=== PATIENT | female | born 1960 | race Two or more races ===

== ENCOUNTER 2019-05-03 07:46 | Outpatient (CLI) | payer OTHER ==
[~2019-05-03 07:46] MED LIST: IRON1 TA1; KEPPRA250 MG; MIRALAX510 GM PO; ORTHO-CYCLEN1 TAB; SENOKOT8.6 MG PO; TRAMADOL HCL-AP1 TAB PO
== END 2019-05-03 07:50 | disposition home or self-care (01) ==
LOC: SONOGRAMA 07:46
DX: E04.2 Nontoxic multinodular goiter (principal)

== ENCOUNTER 2022-04-22 18:58 | Emergency (ER) | payer OTHER ==
[~2022-04-22] VITALS: Ht 172.7 cm; Wt 71.7 kg
[2022-04-22] MEDS ORDERED: PANTOPRAZOLE SO40 MG PO (20:01)
[2022-04-22] MEDS ORDERED: CLONAZEPAM2 MG PO (20:01)
[2022-04-22] MEDS ORDERED: PAXIL20 MG PO (20:02)
== END 2022-04-22 22:03 | disposition home or self-care (01) ==
LOC: ER 18:58
DX: R60.0 Localized edema (principal); I10 Essential (primary) hypertension

== ENCOUNTER 2022-04-23 07:37 | Outpatient (CLI) | payer OTHER ==
[~2022-04-23 07:37] MED LIST changes: +CLONAZEPAM2 MG PO; +PANTOPRAZOLE SO40 MG PO; +PAXIL20 MG PO
== END 2022-04-23 07:38 | disposition home or self-care (01) ==
LOC: NUCLEAR 07:37
PROVIDERS: ATTEND General Practice
DX: I82.401 Acute embolism and thrombosis of unspecified deep veins of right lower extremity (principal); G89.11 Acute pain due to trauma

== ENCOUNTER 2022-04-23 09:09 | Inpatient (IN) | payer OTHER ==
[~2022-04-23] VITALS: Ht 172.7 cm; Wt 67.1 kg
--- NOTE | 2022-04-23 09:23 | NUR ---
PACIENTE ALERTA Y ORIENTADA X3. PACIENTE REFIERE VENIR POR DOLOR EN PIERNA DERECHA Y EDEMA.
--- NOTE | 2022-04-23 10:11 | NUR ---
PACIENTE ALERTA Y ORIENTADA POR ZEN. SE ORIENTA DE TRATAMIENTO ARNALDO ORDEN MEDICA. REFIERE ENTENDER. SE KARTIK MUESTRAS, SE CANALIZA Y SE ADMINISTRA BRENNAN CON MEDIDAS ASEPTICAS CORRESPONDIENTES.
[2022-04-28] MEDS ORDERED: FAMOTIDINE20 MG PO (09:19)
[2022-04-28] MEDS ORDERED: KEPPRA500 MG PO (09:19)
[2022-04-28] MEDS ORDERED: XARELTO20 M1 PO (09:19)
[2022-04-28] MEDS ORDERED: CLONAZEPAM0.5 MG PO (09:19)
[2022-04-28] MEDS ORDERED: PAXIL20 MG PO (09:19)
== END 2022-04-28 10:11 | disposition home or self-care (01) | DRG 300 ==
LOC: ER 09:09 → MEDI 21:34
PROVIDERS: ADMIT Internal Medicine; ATTEND Internal Medicine
DX: I82.491 Acute embolism and thrombosis of other specified deep vein of right lower extremity (principal); D68.59 Other primary thrombophilia; I87.2 Venous insufficiency (chronic) (peripheral); D50.8 Other iron deficiency anemias; R97.0 Elevated carcinoembryonic antigen [CEA]; F17.200 Nicotine dependence, unspecified, uncomplicated; Z86.718 Personal history of other venous thrombosis and embolism

== ENCOUNTER 2022-06-01 08:50 | Outpatient (CLI) | payer OTHER ==
[~2022-06-01 08:50] MED LIST changes: +CLONAZEPAM0.5 MG PO; +FAMOTIDINE20 MG PO; +KEPPRA500 MG PO; +XARELTO20 M1 PO
== END 2022-06-01 08:57 | disposition home or self-care (01) ==
LOC: TOM 08:50
PROVIDERS: ATTEND Internal Medicine Hematology & Oncology
DX: D50.0 Iron deficiency anemia secondary to blood loss (chronic) (principal); K50.80 Crohn's disease of both small and large intestine without complications; I82.493 Acute embolism and thrombosis of other specified deep vein of lower extremity, bilateral
CPT/HCPCS: 74177; Q9965

== ENCOUNTER 2022-08-17 09:09 | Outpatient (CLI) | payer OTHER | END 2022-08-17 09:10 | disposition home or self-care (01) | LOC: NUCLEAR 09:09 | PROVIDERS: ATTEND Internal Medicine Hematology & Oncology | DX: I82.421 Acute embolism and thrombosis of right iliac vein (principal); I81 Portal vein thrombosis; Z86.718 Personal history of other venous thrombosis and embolism ==

== ENCOUNTER 2022-08-17 12:36 | Inpatient (IN) | payer OTHER ==
[~2022-08-17] VITALS: Ht 172.7 cm; Wt 72.6 kg
== END 2022-08-19 16:48 | disposition home or self-care (01) | DRG 300 ==
LOC: ER 12:36 → MEDJ 19:10
PROVIDERS: ADMIT Specialist; ATTEND Specialist
PROC: BB24YZZ Computerized Tomography (CT Scan) of Bilateral Lungs using Other Contrast (ICD-10-PCS; principal; 2022-08-17)
PROC: 3E0F7SF Introduction of Other Gas into Respiratory Tract, Via Natural or Artificial Opening (ICD-10-PCS; 2022-08-17)
PROC: B246ZZZ Ultrasonography of Right and Left Heart (ICD-10-PCS; 2022-08-19)
DX: I82.411 Acute embolism and thrombosis of right femoral vein (principal); D68.69 Other thrombophilia; E72.12 Methylenetetrahydrofolate reductase deficiency; J81.1 Chronic pulmonary edema

== ENCOUNTER 2022-11-09 06:44 | Outpatient (CLI) | payer OTHER ==
[2022-11-09 07:57] LABS: HEMATOCRIT 35.3 % (36.0-45.00); HEMOGLOBIN 11.8 g/dL (12.0-15.00); MEAN CELL VOLUME 92.9 fL (80.00-100.00); MEAN CORPUSCULAR HGB CONC 33.4 g/dl (32.0-36.0); PLATELET COUNT 211 K/uL (150-450); RED CELL DISTRIBUTION WIDTH 14.3 % (11.5-14.5)
== END 2022-11-09 08:11 | disposition home or self-care (01) ==
LOC: LAB 06:44
PROVIDERS: ATTEND Internal Medicine Hematology & Oncology
DX: D50.8 Other iron deficiency anemias (principal); I10 Essential (primary) hypertension; K76.89 Other specified diseases of liver; D51.1 Vitamin B12 deficiency anemia due to selective vitamin B12 malabsorption with proteinuria; D51.0 Vitamin B12 deficiency anemia due to intrinsic factor deficiency; D68.59 Other primary thrombophilia; I82.431 Acute embolism and thrombosis of right popliteal vein; E72.11 Homocystinuria; E72.12 Methylenetetrahydrofolate reductase deficiency

== ENCOUNTER 2022-11-09 08:08 | Outpatient (CLI) | payer OTHER | END 2022-11-09 08:17 | disposition home or self-care (01) | LOC: NUCLEAR 08:08 | PROVIDERS: ATTEND Internal Medicine Hematology & Oncology | DX: E72.11 Homocystinuria (principal); E72.12 Methylenetetrahydrofolate reductase deficiency; I82.431 Acute embolism and thrombosis of right popliteal vein ==

== ENCOUNTER 2023-05-03 06:56 | Outpatient (CLI) | payer OTHER ==
[2023-05-03 08:11] LABS: HEMATOCRIT 35.9 % (36.0-45.00); HEMOGLOBIN 12.4 g/dL (12.0-15.00); MEAN CELL VOLUME 90.7 fL (80.00-100.00); MEAN CORPUSCULAR HEMOGLOBIN 31.3 pg (27.00-32.0); MEAN CORPUSCULAR HGB CONC 34.5 g/dl (32.0-36.0); PLATELET COUNT 222 K/uL (150-450); RED BLOOD COUNT 3.96 M/uL (4.00-6.00); RED CELL DISTRIBUTION WIDTH 13.8 % (11.5-14.5)
[2023-05-03 08:36] LABS: PARTIAL THROMBOPLASTIN TIME 24.4 SECONDS (22.0-34.0); PROTHROMBIN TIME 10.5 SECONDS (9.0-11.5)
[2023-05-03 08:56] LABS: ALBUMIN 3.8 gm/dL (3.4-5.0); BILIRUBIN TOTAL 0.5 mg/dL (0.3-1.2); CALCIUM 9.5 mg/dL (8.5-10.1); CREATININE SERUM 0.76 mg/dL (0.55-1.02); GFR 77.11; POTASSIUM 3.79 mEq/L (3.5-5.1); TOTAL PROTEIN 6.8 gm/dL (6.4-8.2)
[2023-05-03 09:50] LABS: FOLIC ACID > 20.00 ng/ml (4.78-20)
[2023-05-04 09:09] LABS: HOMOCYSTEINE 7.4 umol/L (0.0-17.2)
[2023-05-05 15:32] LABS: MANUAL PLATELET COUNT 398
[2023-05-05 15:34] LABS: PLATELET ESTIMATE NORMAL (NORMAL)
== END 2023-05-03 06:57 | disposition home or self-care (01) ==
LOC: LAB 06:56
PROVIDERS: ATTEND Internal Medicine Hematology & Oncology
DX: D50.8 Other iron deficiency anemias (principal); R79.9 Abnormal finding of blood chemistry, unspecified; I10 Essential (primary) hypertension; R74.02 Elevation of levels of lactic acid dehydrogenase [LDH]; K76.89 Other specified diseases of liver; D51.8 Other vitamin B12 deficiency anemias; D68.61 Antiphospholipid syndrome; I82.431 Acute embolism and thrombosis of right popliteal vein

== ENCOUNTER 2023-05-03 08:30 | Outpatient (CLI) | payer OTHER | END 2023-05-03 08:31 | disposition home or self-care (01) | LOC: NUCLEAR 08:30 | PROVIDERS: ATTEND Internal Medicine Hematology & Oncology | DX: I82.431 Acute embolism and thrombosis of right popliteal vein (principal) ==

== ENCOUNTER 2023-10-15 18:59 | Emergency (ER) | payer OTHER ==
[~2023-10-15] VITALS: Ht 172.7 cm; Wt 64.9 kg
[2023-10-15] MEDS ORDERED: PAXIL20 MG PO (19:15)
[2023-10-15] MEDS ORDERED: ELIQUIS5 MG PO (19:16)
[2023-10-15] MEDS ORDERED: HYDROGEN PEROXIDE 473 ML BOTTLE TOP ONE (19:55)
[2023-10-15] MEDS ORDERED: KETOROLAC TROMETHAMINE 60 MG VIAL IM ONE ×2 (20:15→20:21)
== END 2023-10-15 21:32 | disposition home or self-care (01) ==
LOC: ER 19:00
DX: S89.81XA Other specified injuries of right lower leg, initial encounter (principal); X58.XXXA Exposure to other specified factors, initial encounter; Y93.89 Activity, other specified; Y92.89 Other specified places as the place of occurrence of the external cause; Y99.8 Other external cause status; T14.8XXA Other injury of unspecified body region, initial encounter; T24.201A Burn of second degree of unspecified site of right lower limb, except ankle and foot, initial encounter; T31.0 Burns involving less than 10% of body surface; T79.8XXA Other early complications of trauma, initial encounter; Z15.89 Genetic susceptibility to other disease
CPT/HCPCS: 96372; 99282; J1885

== ENCOUNTER 2023-10-17 09:42 | Emergency (ER) | payer OTHER ==
[~2023-10-17] VITALS: Ht 172.7 cm; Wt 63.5 kg
[~2023-10-17 09:42] MED LIST changes: +ELIQUIS5 MG PO
[2023-10-17] MEDS ORDERED: KETOROLAC TROMETHAMINE 60 MG VIAL IM ONE ×2 (12:30→12:37)
[2023-10-17 13:45] LABS: HEMATOCRIT 39.4 % (36.0-45.00); MEAN CELL VOLUME 91.4 fL (80.00-100.00); MEAN CORPUSCULAR HEMOGLOBIN 30.3 pg (27.00-32.0); MEAN CORPUSCULAR HGB CONC 33.1 g/dl (32.0-36.0); PLATELET COUNT 342 K/uL (150-450); RED BLOOD COUNT 4.31 M/uL (4.00-6.00); RED CELL DISTRIBUTION WIDTH 13.1 % (11.5-14.5)
[2023-10-17 14:00] LABS: CALCIUM 9.5 mg/dL (8.5-10.1); CREATININE SERUM 0.68 mg/dL (0.55-1.02); GFR 87.39; POTASSIUM 3.56 mEq/L (3.5-5.1)
[2023-10-17 14:14] LABS: PARTIAL THROMBOPLASTIN TIME 28.5 SECONDS (22.0-34.0)
[2023-10-17 14:29] LABS: D DIMER 6.67 MG/L
== END 2023-10-17 18:24 | disposition home or self-care (01) ==
LOC: ER 09:42
PROVIDERS: General Practice
DX: M79.604 Pain in right leg (principal); T30.0 Burn of unspecified body region, unspecified degree
CPT/HCPCS: 36415; 93971; 96372; 99284; J1885

== ENCOUNTER 2024-05-21 07:55 | Outpatient (CLI) | payer OTHER | END 2024-05-21 07:56 | disposition home or self-care (01) | LOC: NUCLEAR 07:55 | PROVIDERS: ATTEND Internal Medicine Hematology & Oncology | DX: D68.61 Antiphospholipid syndrome (principal); E72 Other disorders of amino-acid metabolism; I87.2 Venous insufficiency (chronic) (peripheral) ==

== ENCOUNTER 2024-10-15 07:00 | Inpatient (IN) | payer OTHER ==
[~2024-10-15] VITALS: Ht 172.7 cm; Wt 69.4 kg
[2024-10-15 08:08] VITALS: BP 104/70
[2024-10-15] MEDS ORDERED: AZULFIDINE500 M1 PO (08:14)
[2024-10-15] MEDS ORDERED: VITAMINA C (08:15)
[2024-10-15] MEDS ORDERED: VITAMIN D310 MCG/1 M (08:15)
[2024-10-15] MEDS ORDERED: [UNRECOGNIZED DRUG - OTHER] (08:15)
[2024-10-15] MEDS ORDERED: [UNRECOGNIZED DRUG - OTHER] (08:16)
[2024-10-15] MEDS ORDERED: CENTRUM SILVER (08:16)
[2024-10-15 08:30] LABS: BASO % 0.4 % (0.1-1.2); EOS # 0.00 (0.04-0.54); EOS % 0.0 % (0.7-7.0); LYMPH # 2.04 (1.18-3.74); LYMPH % 25.6 % (19.3-53.1); MEAN PLATELET VOLUME 9.50 fl (9.4-12.4); MONO # 0.66 (0.24-0.82); MONO % 8.3 % (4.7-12.5); NEUT # 5.20 (1.56-6.13); NEUT % 65.2 % (34.0-71.1); RED CELL DISTRIBUTION WIDTH 12.2 % (11.6-14.4)
[2024-10-15 08:32] LABS: URINE APPEARANCE Clear; URINE BILIRRUBIN Negative (NEGATIVE); URINE BLOOD Negative; URINE COLOR Yellow; URINE GLUCOSE Negative (NEGATIVE); URINE KETONE Trace (NEGATIVE); URINE LEUKOCYTE Negative; URINE NITRATE Negative; URINE PROTEIN Negative (NEGATIVE); URINE UROBILINOGEN 0.2 E.U./dl
[2024-10-15 08:37] LABS: URINE BACTERIA 4.7 uL (0.0-1933); URINE EPITHELIAL CELLS 1.9 uL (0.0-38.8); URINE RBC 5.8 uL (0.0-20.8); URINE WBC 9.8 uL (0.0-23.2)
[2024-10-15 08:42] LABS: URINE CAST 0.29 uL (0.0-1.40)
[2024-10-15 08:55] LABS: ALT/SGPT 22.0 U/L (12-78); AST/SGOT 12.0 U/L (15-37); BILIRUBIN TOTAL 0.38 mg/dL (0.3-1.2); BUN CREA RATIO 19.0 (7.0-25.0); CREATININE SERUM 0.8 mg/dL (0.55-1.02); GFR 72.21; GLOBULINA 3.3 G/DL (2.4-3.5); GLUCOSE FASTING 79.0 mg/dL (65-100); OSMOLALITY SERUM 287.0 MOSM/KG (275-295)
[2024-10-15 09:48] LABS: INR 0.96
[2024-10-23] MEDS ORDERED: TRANEXAMIC ACID 100MG/1ML (1000MG) AMPUL ONE (06:42)
[2024-10-23] MEDS ORDERED: CEFAZOLIN SODIUM 1,000 MG VIAL ONE (06:42)
[2024-10-23] MEDS ORDERED: ISOPROPYL ALCOHOL 30 ML OUNCE TOP ONE (07:01)
[2024-10-23] MEDS ORDERED: VANCOMYCIN HCL 1,000 MG VIAL ONE ×2 (07:01→07:07)
[2024-10-23] MEDS ORDERED: KETOROLAC TROMETHAMINE 60 MG VIAL IM ONE (09:06)
[2024-10-23] MEDS ORDERED: MORPHINE SULFATE 4 MG/ML CARTRIDGE IV ONE (09:30)
[2024-10-23] MEDS ORDERED: BUPIVACAINE HCL 30 ML VIAL IJ ONE (09:30)
[2024-10-23] MEDS ORDERED: ONDANSETRON HCL 2 MG/ML VIAL IV PRN (09:45)
[2024-10-23] MEDS ORDERED: MORPHINE SULFATE 4 MG/ML VIAL IV ONE ×2 (10:45→11:15)
[2024-10-23 11:50] VITALS: BP 117/76; O2SAT 97
[2024-10-23] MEDS ORDERED: OxyCODONE HCL 5 MG TABLET (ROXICODONE) PO SCH (12:00)
[2024-10-23] MEDS ORDERED: MORPHINE SULFATE 4 MG/ML CARTRIDGE IV SCH (12:00)
[2024-10-23] MEDS ORDERED: CEFAZOLIN SODIUM 1,000 MG VIAL IV SCH (12:00)
[2024-10-23] MEDS ORDERED: LevETIRAcetam 500 MG TAB. PO STA (14:32)
[2024-10-23 17:00] VITALS: BP 113/71; O2SAT 98
[2024-10-23] MEDS ORDERED: GABAPENTIN 100 MG CAPSULE PO SCH (21:00)
[2024-10-23] MEDS ORDERED: ORPHENADRINE CITRATE 100 MG TABLET PO SCH (21:00)
[2024-10-23] MEDS ORDERED: CLONAZEPAM 0.5 MG TABLET PO SCH (21:00)
[2024-10-24 01:53] VITALS: BP 99/58; O2SAT 95
[2024-10-24 06:52] LABS: BASO % 0.2 % (0.1-1.2); EOS # 0.00 (0.04-0.54); EOS % 0.0 % (0.7-7.0); LYMPH # 2.01 (1.18-3.74); LYMPH % 20.6 % (19.3-53.1); MEAN PLATELET VOLUME 9.70 fl (9.4-12.4); MONO # 0.87 (0.24-0.82); MONO % 8.9 % (4.7-12.5); NEUT # 6.81 (1.56-6.13); NEUT % 69.7 % (34.0-71.1); RED CELL DISTRIBUTION WIDTH 12.0 % (11.6-14.4)
[2024-10-24 08:44] VITALS: BP 116/72; O2SAT 95
[2024-10-24] MEDS ORDERED: LevETIRAcetam 500 MG TAB. PO SCH (09:00)
[2024-10-24] MEDS ORDERED: RIVAROXABAN 10 MG TAB PO SCH (09:00)
[2024-10-24] MEDS ORDERED: APIXABAN 5 MG TABLET PO SCH (09:00)
[2024-10-24 11:48] LABS: COVID-19 AG NEGATIVE (NEGATIVE)
[2024-10-24] MEDS ORDERED: SOD FERRIC GLUC COMPLX/SUCROSE 62.5 MG/5 ML AMPUL IV SCH (12:00)
[2024-10-24 12:14] LABS: ALT/SGPT 18.0 U/L (12-78); AST/SGOT 28.0 U/L (15-37); BILIRUBIN TOTAL 0.54 mg/dL (0.3-1.2); BUN CREA RATIO 11.0 (7.0-25.0); CREATININE SERUM 0.82 mg/dL (0.55-1.02); GFR 70.18; GLOBULINA 3.1 G/DL (2.4-3.5); GLUCOSE FASTING 141.0 mg/dL (65-100); OSMOLALITY SERUM 279.0 MOSM/KG (275-295)
[2024-10-24] MEDS ORDERED: Cyanocobalamin/Mecobalamin 1 TAB.SL SL NR (13:00)
[2024-10-24] MEDS ORDERED: KETOROLAC TROMETHAMINE 60 MG VIAL IM PRN (16:00)
[2024-10-24 18:00] VITALS: BP 122/72; O2SAT 98
[2024-10-25 01:56] VITALS: BP 117/69; O2SAT 98
[2024-10-25 06:43] LABS: BASO % 0.3 % (0.1-1.2); EOS # 0.00 (0.04-0.54); EOS % 0.0 % (0.7-7.0); LYMPH # 1.89 (1.18-3.74); LYMPH % 19.6 % (19.3-53.1); MEAN PLATELET VOLUME 9.70 fl (9.4-12.4); MONO # 1.15 (0.24-0.82); MONO % 11.9 % (4.7-12.5); NEUT # 6.50 (1.56-6.13); NEUT % 67.6 % (34.0-71.1); RED CELL DISTRIBUTION WIDTH 12.3 % (11.6-14.4)
[2024-10-25 08:33] VITALS: BP 113/64; O2SAT 95
[2024-10-25] MEDS ORDERED: Cyanocobalamin/Mecobalamin 1 TAB.SL SL SCH (09:00)
[2024-10-25] MEDS ORDERED: NORFLEX100MG PO (12:47)
[2024-10-25] MEDS ORDERED: ELIQUIS5 MG PO (12:47)
[2024-10-25] MEDS ORDERED: GABAPENTIN100 MG PO (12:48)
[2024-10-25] MEDS ORDERED: PERCOCET 5-3251 EACH PO (12:52)
== END 2024-10-25 16:00 | disposition home or self-care (01) | DRG 470 ==
LOC: O/R 10-23 06:00 → SURH 10-23 07:00
PROVIDERS: ADMIT Orthopaedic Surgery; ATTEND Orthopaedic Surgery
PROC: 0SRD0J9 Replacement of Left Knee Joint with Synthetic Substitute, Cemented, Open Approach (ICD-10-PCS; principal; 2024-10-23 13:00)
DX: M17.12 Unilateral primary osteoarthritis, left knee (principal); D62 Acute posthemorrhagic anemia; M85.662 Other cyst of bone, left lower leg